=== PATIENT | male | born 1945 | race African-American/Black ===

== ENCOUNTER 2017-10-20 00:26 | Emergency (ER) | payer MEDICARE, OTHER ==
[~2017-10-20] VITALS: Ht 170.2 cm; Wt 63.0 kg
[2017-10-20] MEDS ORDERED: ALBUTEROL (0.083%) 2.5MG/3ML NEB HHN STA (01:15)
[2017-10-20] MEDS ORDERED: IPRATROPIUM BROMIDE (0.02%) 0.5MG/2.5ML NEB HHN STA (01:15)
[2017-10-20] MEDS ORDERED: METHYLPREDNISOLONE SOD SUCC 125 MG/2 ML VIAL IV STA (01:15)
[2017-10-20] MEDS ORDERED: MAGNESIUM 2 G PREMIX 50 ML IV ONE (01:15)
[2017-10-20 03:55] VITALS: BP 137/74
== END 2017-10-20 03:58 | disposition home or self-care (01) ==
LOC: ER 00:26
DX: J44.1 Chronic obstructive pulmonary disease with (acute) exacerbation (principal); I10 Essential (primary) hypertension; E11.9 Type 2 diabetes mellitus without complications; Z88.0 Allergy status to penicillin
CPT/HCPCS: 71045; 94640; 99283; J2930; J3475; J7611

== ENCOUNTER 2019-04-16 21:18 | Inpatient (IN) | payer MEDICARE, MEDICAID ==
[~2019-04-16] VITALS: Ht 167.6 cm; Wt 80.3 kg
[~2019-04-16 21:18] MED LIST: AMLO5TAB88 MT; ASPI-1393 PO; MED4 MT; MONT10TA21 PO; NICO-645 TP; PANT40TA4 MT
[2019-04-16 22:57] LABS: BASOPHILS % 0.8 % (0.0-2.0); EOSINOPHILS % 1.5 % (0.0-5.0); HEMATOCRIT. 31.9 % (42.0-52.0); HEMOGLOBIN. 10.7 g/dL (14.0-18.0); LYMPHOCYTES % 13.4 % (20.0-50.0); MEAN CORPUSCULAR VOLUME 95.1 fL (80.0-94.0); MONOCYTES % 12.4 % (2.0-8.0); NEUTROPHILS % 71.9 % (40.0-76.0); PLATELET 298 x1000/uL (130-400); RED BLOOD CELL COUNT 3.35 mill/uL (4.7-6.1); RED CELL DISTRIBUTION WIDTH 15.9 % (11.6-14.6)
[2019-04-16 23:04] LABS: CHLORIDE 99 mEq/L (98-107)
[2019-04-17] MEDS ORDERED: KETOROLAC 15MG/ML VIAL IV ONE (02:15)
[2019-04-17] MEDS ORDERED: MORPHINE SULFATE 2 MG/ML CPJ (NOT FOR IM USE) IV ONE (02:15)
[2019-04-17] MEDS: VANCOMYCIN 1 G PREMIX 200 ML IV SCH ×2 (02:28→03:12)
[2019-04-17] MEDS ORDERED: POTASSIUM CHLORIDE 20MEQ TABLET SR PO SCH (02:37)
[2019-04-17 05:30] VITALS: BP 112/61
[2019-04-17] MEDS ORDERED: METF-414 PO (06:24)
[2019-04-17] MEDS ORDERED: VANCOMYCIN 500 MG PREMIX 100 ML IV SCH (06:45)
[2019-04-17] MEDS ORDERED: ZOLPIDEM TARTRATE 5MG TABLET PO PRN (06:45)
[2019-04-17] MEDS: BLOOD SUGAR DIAGNOSTIC STRIP TEST SCH ×4 (07:39→20:53)
[2019-04-17] MEDS: INSULIN LISPRO 100 UNITS/ML SUBCUT SCH ×4 (07:50→21:00)
[2019-04-17 08:00] VITALS: BP 94/55
[2019-04-17] MEDS: MONTELUKAST SODIUM 10MG TABLET PO SCH (08:23)
[2019-04-17] MEDS ORDERED: AMLODIPINE 5MG TABLET PO SCH (09:00)
[2019-04-17] MEDS: CLINDAMYCIN 600 MG in DEXTROSE 5% WATER 50 ML IV SCH ×2 (10:42→16:14)
[2019-04-17 12:00] VITALS: BP 81/51
[2019-04-17] MEDS: ALBUTEROL (0.083%) 2.5MG/3ML NEB HHN SCH ×4 (13:46→23:50)
[2019-04-17 16:00] VITALS: BP 93/52
[2019-04-17] MEDS: HYDROCODONE/ACETAMINOPHEN 5/325MG TABLET PO PRN (16:24)
[2019-04-17] MEDS: VANCOMYCIN 750 MG PREMIX 150 ML IV SCH (18:26)
[2019-04-17 20:00] VITALS: BP 94/50
[2019-04-17] MEDS: BUDESONIDE 0.5MG/2ML NEB HHN SCH (20:36)
[2019-04-17] MEDS: AZTREONAM 2 GM in DEXT 5% WATER 100 ML IV SCH (20:51)
[2019-04-17] MEDS: ENOXAPARIN 40MG/0.4ML SYR SUBCUT SCH (20:52)
[2019-04-17] MEDS ORDERED: HYDROCODONE/ACETAMINOPHEN 10/325MG TABLET PO PRN (22:30)
[2019-04-17] MEDS: ZOLPIDEM TARTRATE 5MG TABLET PO PRN (22:47)
[2019-04-17 23:38] VITALS: BP 94/50
[2019-04-18] VITALS (8 sets, daily range): BP systolic 85–112; BP diastolic 46–65
[2019-04-18] MEDS ORDERED: SODIUM CHLORIDE 0.9% 500 ML IV ONE (01:00)
[2019-04-18] MEDS: ALBUTEROL (0.083%) 2.5MG/3ML NEB HHN SCH ×5 (04:26→21:20)
[2019-04-18] MEDS: VANCOMYCIN 750 MG PREMIX 150 ML IV SCH ×2 (05:27→18:15)
[2019-04-18] MEDS: AZTREONAM 2 GM in DEXT 5% WATER 100 ML IV SCH ×2 (06:14→18:02)
[2019-04-18] MEDS: BLOOD SUGAR DIAGNOSTIC STRIP TEST SCH ×4 (06:14→21:38)
[2019-04-18 06:42] LABS: HEMATOCRIT. 25.7 % (42.0-52.0); HEMOGLOBIN. 8.7 g/dL (14.0-18.0); MEAN CORPUSCULAR HEMOGLOBIN 31.9 pg (28.0-32.0); MEAN CORPUSCULAR VOLUME 94.7 fL (80.0-94.0); MEAN PLATELET VOLUME 7.7 fl (7.4-10.4); PLATELET 323 x1000/uL (130-400); RED BLOOD CELL COUNT 2.72 mill/uL (4.7-6.1); RED CELL DISTRIBUTION WIDTH 16.4 % (11.6-14.6)
[2019-04-18] MEDS: BUDESONIDE 0.5MG/2ML NEB HHN SCH ×2 (07:45→21:17)
[2019-04-18] MEDS: INSULIN LISPRO 100 UNITS/ML SUBCUT SCH ×4 (07:50→21:38)
[2019-04-18 07:53] LABS: CHLORIDE 104 mEq/L (98-107)
[2019-04-18] MEDS ORDERED: POTASSIUM CHLORIDE 20MEQ TABLET SR PO NR ×2 (09:00→12:00)
[2019-04-18] MEDS: MONTELUKAST SODIUM 10MG TABLET PO SCH (09:23)
[2019-04-18] MEDS ORDERED: NEOM1PAC2 TP (09:29)
[2019-04-18 10:23] LABS: PLATELET ESTIMATE NORMAL
[2019-04-18] MEDS: HYDROCODONE/ACETAMINOPHEN 5/325MG TABLET PO PRN (12:59)
[2019-04-18] MEDS: MORPHINE SULFATE 2 MG/ML CPJ (NOT FOR IM USE) IV PRN ×2 (17:04→21:22)
[2019-04-18] MEDS: ZOLPIDEM TARTRATE 5MG TABLET PO PRN (21:21)
[2019-04-18] MEDS: LOPERAMIDE HCL 2MG CAPSULE PO PRN (21:21)
[2019-04-18] MEDS: ENOXAPARIN 40MG/0.4ML SYR SUBCUT SCH (21:23)
[2019-04-19 00:14] VITALS: BP 90/47
[2019-04-19] MEDS: ALBUTEROL (0.083%) 2.5MG/3ML NEB HHN SCH ×6 (00:47→21:36)
[2019-04-19 04:00] VITALS: BP 97/52
[2019-04-19 06:30] LABS: HEMATOCRIT. 26.9 % (42.0-52.0); HEMOGLOBIN. 9.2 g/dL (14.0-18.0); MEAN CORPUSCULAR HEMOGLOBIN 32.4 pg (28.0-32.0); MEAN CORPUSCULAR VOLUME 94.5 fL (80.0-94.0); MEAN PLATELET VOLUME 7.6 fl (7.4-10.4); PLATELET 328 x1000/uL (130-400); RED BLOOD CELL COUNT 2.85 mill/uL (4.7-6.1); RED CELL DISTRIBUTION WIDTH 16.2 % (11.6-14.6)
[2019-04-19 06:33] LABS: CHLORIDE 106 mEq/L (98-107)
[2019-04-19 06:42] LABS: VANCOMYCIN TROUGH 15.7 ug/mL (5.0-10.0)
[2019-04-19] MEDS: BLOOD SUGAR DIAGNOSTIC STRIP TEST SCH ×4 (07:07→21:09)
[2019-04-19] MEDS: INSULIN LISPRO 100 UNITS/ML SUBCUT SCH ×4 (07:50→21:00)
[2019-04-19] MEDS: BUDESONIDE 0.5MG/2ML NEB HHN SCH ×2 (08:08→21:35)
[2019-04-19] MEDS: MONTELUKAST SODIUM 10MG TABLET PO SCH (09:00)
[2019-04-19] MEDS: AZTREONAM 2 GM in DEXT 5% WATER 100 ML IV SCH ×2 (09:11→21:09)
[2019-04-19] MEDS: MORPHINE SULFATE 2 MG/ML CPJ (NOT FOR IM USE) IV PRN (09:13)
[2019-04-19 10:46] LABS: INR 1.1; PROTHROMBIN TIME 11.4 sec (9.6-11.0)
[2019-04-19] MEDS: HYDROCODONE/ACETAMINOPHEN 5/325MG TABLET PO PRN (12:17)
[2019-04-19] MEDS: VANCOMYCIN 750 MG PREMIX 150 ML IV SCH ×2 (12:17→19:07)
[2019-04-19] MEDS ORDERED: LIDOCAINE HCL 1% 20ML VIAL (Pyxis) INJ ONE (13:36)
[2019-04-19] MEDS ORDERED: SODIUM BICARBONATE 4% (2.4MEQ) 5ML VIAL IV ONE (13:37)
[2019-04-19 13:49] LABS: NUCLEATED RED BLOOD CELLS 1 /100 WBC
[2019-04-19 13:50] LABS: PLATELET ESTIMATE NORMAL
[2019-04-19] MEDS: METHADONE HCL 10MG TABLET PO SCH (15:28)
[2019-04-19 20:00] VITALS: BP 95/56
[2019-04-19] MEDS: ENOXAPARIN 40MG/0.4ML SYR SUBCUT SCH (21:09)
[2019-04-20] VITALS: BP 100/58
[2019-04-20] MEDS: ALBUTEROL (0.083%) 2.5MG/3ML NEB HHN SCH ×7 (01:26→20:30)
[2019-04-20 04:00] VITALS: BP 106/56
[2019-04-20] MEDS: VANCOMYCIN 750 MG PREMIX 150 ML IV SCH ×2 (04:59→18:26)
[2019-04-20] MEDS: BLOOD SUGAR DIAGNOSTIC STRIP TEST SCH ×4 (06:07→22:46)
[2019-04-20] MEDS: AZTREONAM 2 GM in DEXT 5% WATER 100 ML IV SCH ×2 (06:07→18:26)
[2019-04-20] MEDS: INSULIN LISPRO 100 UNITS/ML SUBCUT SCH ×3 (07:50→22:46)
[2019-04-20 08:00] VITALS: BP 93/56
[2019-04-20] MEDS: BUDESONIDE 0.5MG/2ML NEB HHN SCH ×3 (08:33→20:30)
[2019-04-20] MEDS: METHADONE HCL 10MG TABLET PO SCH (09:30)
[2019-04-20 12:00] VITALS: BP 91/53
[2019-04-20] MEDS ORDERED: SODIUM BICARBONATE 4% (2.4MEQ) 5ML VIAL IV ONE (14:14)
[2019-04-20] MEDS ORDERED: LIDOCAINE HCL 1% 20ML VIAL (Pyxis) INJ ONE (14:14)
[2019-04-20] MEDS: HYDROCODONE/ACETAMINOPHEN 5/325MG TABLET PO PRN (15:43)
[2019-04-20 16:00] VITALS: BP 116/61
[2019-04-20 20:00] VITALS: BP 90/41
[2019-04-20] MEDS: ENOXAPARIN 40MG/0.4ML SYR SUBCUT SCH (22:39)
[2019-04-21 00:30] VITALS: BP 120/58
[2019-04-21] MEDS: ALBUTEROL (0.083%) 2.5MG/3ML NEB HHN SCH ×6 (01:03→20:51)
[2019-04-21 04:00] VITALS: BP 112/58
[2019-04-21] MEDS: AZTREONAM 2 GM in DEXT 5% WATER 100 ML IV SCH ×2 (07:34→18:56)
[2019-04-21] MEDS: VANCOMYCIN 750 MG PREMIX 150 ML IV SCH ×2 (07:34→17:37)
[2019-04-21] MEDS: BLOOD SUGAR DIAGNOSTIC STRIP TEST SCH ×4 (07:42→21:44)
[2019-04-21] MEDS: INSULIN LISPRO 100 UNITS/ML SUBCUT SCH ×4 (07:42→21:00)
[2019-04-21 08:36] VITALS: BP 103/56
[2019-04-21] MEDS: DEXTROSE 50% WATER 50ML SYRINGE IV PRN ×2 (08:39→12:30)
[2019-04-21] MEDS: METHADONE HCL 10MG TABLET PO SCH (09:00)
[2019-04-21] MEDS: MONTELUKAST SODIUM 10MG TABLET PO SCH (09:00)
[2019-04-21 12:19] VITALS: BP 90/45
[2019-04-21] MEDS ORDERED: VANCOMYCIN HCL 1 GM/VIAL ONE (12:24)
[2019-04-21] MEDS ORDERED: BACITRACIN 50,000 UNITS/VIAL ONE ×2 (12:24→12:52)
[2019-04-21] MEDS ORDERED: FENTANYL CITRATE/PF 50MCG/ML 2ML VIAL ONE ×2 (13:04→13:05)
[2019-04-21] MEDS ORDERED: METOCLOPRAMIDE HCL 10MG/2ML VIAL ONE (13:05)
[2019-04-21] MEDS ORDERED: LIDOCAINE HCL/PF 1% 10 MG/ML 5ML VIAL ONE (13:05)
[2019-04-21] MEDS ORDERED: MIDAZOLAM HCL 2 MG/2 ML VIAL ONE (13:05)
[2019-04-21] MEDS ORDERED: GLYCOPYRROLATE 0.2 MG/ML 2ML VIAL ONE (13:05)
[2019-04-21] MEDS ORDERED: PROPOFOL 200MG/20ML VIAL IV ONE (13:05)
[2019-04-21] MEDS ORDERED: ONDANSETRON HCL 4MG/2ML INJ ONE (13:05)
[2019-04-21] MEDS ORDERED: SUCCINYLCHOLINE CHLORIDE 200MG/10ML IV ONE (13:05)
[2019-04-21] MEDS ORDERED: SODIUM CHLORIDE 0.9% 1,000 ML IV ONE (14:03)
[2019-04-21] MEDS ORDERED: ONDANSETRON HCL 4MG/2ML INJ IV PRN (14:15)
[2019-04-21] MEDS ORDERED: MORPHINE SULFATE 2 MG/ML CPJ (NOT FOR IM USE) IV PRN (14:15)
[2019-04-21] MEDS ORDERED: MEPERIDINE HCL/PF 25MG/ML CPJ IV PRN ×2 (14:15)
[2019-04-21] MEDS: HYDROMORPHONE HCL/PF 2MG/ML CPJ IV PRN ×3 (14:23→15:29)
[2019-04-21] MEDS: MORPHINE SULFATE 2 MG/ML CPJ (NOT FOR IM USE) IV PRN (17:52)
[2019-04-21 20:46] VITALS: BP 114/57
[2019-04-21 21:04] LABS: BASOPHILS % 0.5 % (0.0-2.0); EOSINOPHILS % 5.9 % (0.0-5.0); HEMATOCRIT. 28.2 % (42.0-52.0); HEMOGLOBIN. 9.3 g/dL (14.0-18.0); LYMPHOCYTES % 23.4 % (20.0-50.0); MEAN CORPUSCULAR HEMOGLOBIN 32.1 pg (28.0-32.0); MEAN CORPUSCULAR VOLUME 97.5 fL (80.0-94.0); MEAN PLATELET VOLUME 7.8 fl (7.4-10.4); MONOCYTES % 11.8 % (2.0-8.0); NEUTROPHILS % 58.4 % (40.0-76.0); PLATELET 310 x1000/uL (130-400); RED CELL DISTRIBUTION WIDTH 16.5 % (11.6-14.6)
[2019-04-21 21:17] LABS: CHLORIDE 108 mEq/L (98-107)
[2019-04-21] MEDS: ENOXAPARIN 40MG/0.4ML SYR SUBCUT SCH (21:31)
[2019-04-22] VITALS: BP 109/53
[2019-04-22] MEDS: MORPHINE SULFATE 2 MG/ML CPJ (NOT FOR IM USE) IV PRN ×3 (00:14→18:14)
[2019-04-22] MEDS: ALBUTEROL (0.083%) 2.5MG/3ML NEB HHN SCH ×6 (01:24→21:09)
[2019-04-22 04:00] VITALS: BP 144/86
[2019-04-22] MEDS: VANCOMYCIN 750 MG PREMIX 150 ML IV SCH ×2 (06:33→18:02)
[2019-04-22] MEDS: AZTREONAM 2 GM in DEXT 5% WATER 100 ML IV SCH ×2 (06:33→18:13)
[2019-04-22] MEDS: INSULIN LISPRO 100 UNITS/ML SUBCUT SCH ×4 (07:13→21:34)
[2019-04-22] MEDS: BLOOD SUGAR DIAGNOSTIC STRIP TEST SCH ×4 (07:13→21:20)
[2019-04-22 08:00] VITALS: BP 102/45
[2019-04-22] MEDS: METHADONE HCL 10MG TABLET PO SCH (09:19)
[2019-04-22] MEDS: MONTELUKAST SODIUM 10MG TABLET PO SCH (09:19)
[2019-04-22 12:00] VITALS: BP 91/42
[2019-04-22 16:00] VITALS: BP 175/153
[2019-04-22 20:00] VITALS: BP 95/46
[2019-04-22] MEDS: HYDROCODONE/ACETAMINOPHEN 10/325MG TABLET PO PRN (21:18)
[2019-04-23] VITALS: BP 98/48
[2019-04-23] MEDS: ALBUTEROL (0.083%) 2.5MG/3ML NEB HHN SCH ×6 (01:20→21:49)
[2019-04-23] MEDS: MORPHINE SULFATE 2 MG/ML CPJ (NOT FOR IM USE) IV PRN ×2 (02:51→18:35)
[2019-04-23 04:00] VITALS: BP 97/50
[2019-04-23] MEDS: AZTREONAM 2 GM in DEXT 5% WATER 100 ML IV SCH ×2 (06:33→20:23)
[2019-04-23] MEDS: VANCOMYCIN 750 MG PREMIX 150 ML IV SCH ×2 (06:33→17:46)
[2019-04-23] MEDS: HYDROCODONE/ACETAMINOPHEN 10/325MG TABLET PO PRN (06:41)
[2019-04-23] MEDS: INSULIN LISPRO 100 UNITS/ML SUBCUT SCH ×4 (07:50→21:00)
[2019-04-23] MEDS: BLOOD SUGAR DIAGNOSTIC STRIP TEST SCH ×4 (07:55→21:00)
[2019-04-23 08:36] VITALS: BP 96/45
[2019-04-23] MEDS: MONTELUKAST SODIUM 10MG TABLET PO SCH (09:13)
[2019-04-23] MEDS: METHADONE HCL 10MG TABLET PO SCH (09:15)
[2019-04-23 12:16] VITALS: BP 92/42
[2019-04-23 16:28] VITALS: BP 80/22
[2019-04-23 20:00] VITALS: BP 96/54
[2019-04-24] VITALS: BP_SYST 93; BP_SYST 96; BP_DIAS 45; BP_DIAS 54
[2019-04-24] MEDS: ALBUTEROL (0.083%) 2.5MG/3ML NEB HHN SCH ×6 (00:36→20:50)
[2019-04-24] MEDS: MORPHINE SULFATE 2 MG/ML CPJ (NOT FOR IM USE) IV PRN ×3 (01:50→13:14)
[2019-04-24 04:00] VITALS: BP 96/54
[2019-04-24] MEDS: VANCOMYCIN 750 MG PREMIX 150 ML IV SCH ×2 (06:08→18:46)
[2019-04-24 06:35] LABS: CHLORIDE 114 mEq/L (98-107)
[2019-04-24] MEDS: BLOOD SUGAR DIAGNOSTIC STRIP TEST SCH ×4 (06:47→21:00)
[2019-04-24 06:53] LABS: BASOPHILS % 0.6 % (0.0-2.0); EOSINOPHILS % 7.4 % (0.0-5.0); HEMOGLOBIN. 7.8 g/dL (14.0-18.0); LYMPHOCYTES % 27.4 % (20.0-50.0); MEAN CORPUSCULAR HEMOGLOBIN 32.9 pg (28.0-32.0); MEAN PLATELET VOLUME 7.4 fl (7.4-10.4); MONOCYTES % 20.4 % (2.0-8.0); NEUTROPHILS % 44.2 % (40.0-76.0); PLATELET 313 x1000/uL (130-400); RED BLOOD CELL COUNT 2.37 mill/uL (4.7-6.1); RED CELL DISTRIBUTION WIDTH 16.4 % (11.6-14.6)
[2019-04-24] MEDS: INSULIN LISPRO 100 UNITS/ML SUBCUT SCH ×4 (07:50→21:00)
[2019-04-24 08:00] VITALS: BP 101/47
[2019-04-24] MEDS: AZTREONAM 2 GM in DEXT 5% WATER 100 ML IV SCH ×2 (08:49→18:02)
[2019-04-24] MEDS: MONTELUKAST SODIUM 10MG TABLET PO SCH (08:51)
[2019-04-24] MEDS: METHADONE HCL 10MG TABLET PO SCH (09:09)
[2019-04-24 12:00] VITALS: BP 107/35
[2019-04-24] MEDS ORDERED: MORPHINE SULFATE 2 MG/ML CPJ (NOT FOR IM USE) IV NR (14:57)
[2019-04-24 16:00] VITALS: BP 103/41
[2019-04-24 20:00] VITALS: BP 100/52
[2019-04-24] MEDS: MORPHINE SULFATE 4 MG/ML CPJ (NOT FOR IM USE) IV PRN (20:50)
[2019-04-24] MEDS ORDERED: ZOLPIDEM TARTRATE 5MG TABLET PO PRN (21:15)
[2019-04-24] MEDS: LOPERAMIDE HCL 2MG CAPSULE PO PRN (21:26)
[2019-04-25] VITALS: BP 104/52
[2019-04-25] MEDS: ALBUTEROL (0.083%) 2.5MG/3ML NEB HHN SCH ×6 (00:14→20:00)
[2019-04-25] MEDS: HYDROCODONE/ACETAMINOPHEN 10/325MG TABLET PO PRN ×4 (00:24→14:29)
[2019-04-25 04:00] VITALS: BP 100/59
[2019-04-25] MEDS: VANCOMYCIN 750 MG PREMIX 150 ML IV SCH ×2 (05:05→17:21)
[2019-04-25 06:31] LABS: HEMOGLOBIN. 7.9 g/dL (14.0-18.0); MEAN CORPUSCULAR HEMOGLOBIN 32.2 pg (28.0-32.0); MEAN CORPUSCULAR VOLUME 97.7 fL (80.0-94.0); MEAN PLATELET VOLUME 7.4 fl (7.4-10.4); PLATELET 357 x1000/uL (130-400); RED BLOOD CELL COUNT 2.45 mill/uL (4.7-6.1); RED CELL DISTRIBUTION WIDTH 16.2 % (11.6-14.6)
[2019-04-25 06:42] LABS: CHLORIDE 115 mEq/L (98-107)
[2019-04-25] MEDS: BLOOD SUGAR DIAGNOSTIC STRIP TEST SCH ×4 (06:48→21:00)
[2019-04-25] MEDS: INSULIN LISPRO 100 UNITS/ML SUBCUT SCH ×4 (07:15→22:05)
[2019-04-25 08:00] VITALS: BP_SYST 120; BP_SYST 123; BP_DIAS 63; BP_DIAS 82
[2019-04-25 09:03] LABS: PLATELET ESTIMATE NORMAL
[2019-04-25] MEDS: MONTELUKAST SODIUM 10MG TABLET PO SCH (09:03)
[2019-04-25 12:00] VITALS: BP 127/61
[2019-04-25] MEDS: MORPHINE SULFATE 4 MG/ML CPJ (NOT FOR IM USE) IV PRN ×3 (12:39→22:41)
[2019-04-25 14:24] VITALS: BP 112/59
[2019-04-25 16:00] VITALS: BP 123/59
[2019-04-26] MEDS: ALBUTEROL (0.083%) 2.5MG/3ML NEB HHN SCH ×6 (00:38→19:56)
[2019-04-26] MEDS: MORPHINE SULFATE 4 MG/ML CPJ (NOT FOR IM USE) IV PRN ×3 (05:06→17:46)
[2019-04-26] MEDS: BLOOD SUGAR DIAGNOSTIC STRIP TEST SCH ×3 (06:23→16:46)
[2019-04-26] MEDS: INSULIN LISPRO 100 UNITS/ML SUBCUT SCH ×3 (06:23→17:50)
[2019-04-26] MEDS: VANCOMYCIN 750 MG PREMIX 150 ML IV SCH ×2 (06:27→18:22)
[2019-04-26 08:00] VITALS: BP 117/60
[2019-04-26] MEDS: MONTELUKAST SODIUM 10MG TABLET PO SCH (10:33)
[2019-04-26 12:00] VITALS: BP 127/53
[2019-04-26 17:11] VITALS: BP 126/59
[2019-04-26 17:46] VITALS: BP 130/80
== END 2019-04-26 20:35 | DRG 710 ==
LOC: ER 21:28 → 6WST 04-17 01:58 → ENRESERV 04-17 03:29 → ER 04-17 05:07
PROVIDERS: ADMIT Internal Medicine; ATTEND Internal Medicine
PROC: 0MB30ZZ Excision of Right Elbow Bursa and Ligament, Open Approach (ICD-10-PCS; 2019-04-19)
PROC: 0R9L3ZX Drainage of Right Elbow Joint, Percutaneous Approach, Diagnostic (ICD-10-PCS; 2019-04-19)
PROC: 02HV33Z Insertion of Infusion Device into Superior Vena Cava, Percutaneous Approach (ICD-10-PCS; principal; 2019-04-20)
PROC: B5181ZA Fluoroscopy of Superior Vena Cava using Low Osmolar Contrast, Guidance (ICD-10-PCS; 2019-04-20)
PROC: B548ZZA Ultrasonography of Superior Vena Cava, Guidance (ICD-10-PCS; 2019-04-20)
DX: A41.9 Sepsis, unspecified organism (principal); E43 Unspecified severe protein-calorie malnutrition; I95.9 Hypotension, unspecified; E87.2 Acidosis; J44.9 Chronic obstructive pulmonary disease, unspecified; E11.9 Type 2 diabetes mellitus without complications; E87.1 Hypo-osmolality and hyponatremia; D64.9 Anemia, unspecified; L03.113 Cellulitis of right upper limb; E87.6 Hypokalemia; I10 Essential (primary) hypertension; F14.90 Cocaine use, unspecified, uncomplicated; F17.210 Nicotine dependence, cigarettes, uncomplicated; M60.9 Myositis, unspecified; Z68.28 Body mass index [BMI] 28.0-28.9, adult; L02.413 Cutaneous abscess of right upper limb; M71.129 Other infective bursitis, unspecified elbow; Z88.0 Allergy status to penicillin; Z71.6 Tobacco abuse counseling; Z71.51 Drug abuse counseling and surveillance of drug abuser; F19.10 Other psychoactive substance abuse, uncomplicated; M71.121 Other infective bursitis, right elbow
CPT/HCPCS: 20610; 36415; 36573; 71045; 73200; 76942; 80048; 80202; 82550; 82962; 83605; 83880; 84145; 84484; 85651; 86140; 87070; 87075; 93005; 94640; 97162; 97166; 99285; C1725; C1893; J0330; J1170; J1650; J1815; J1885; J2250; J2270; J2405; J2704; J2765; J3010; J3370; J3490; J7040; J7060; J7611; J7626